=== PATIENT | female | born 1990 | race Caucasian/White ===

== ENCOUNTER → 2016-10-27 | Outpatient (CLI) | payer OTHER | LOC: COL.RAD 14:11 | DX: Z13.89 Encounter for screening for other disorder (principal) | CPT/HCPCS: Q9967 ==

== ENCOUNTER → 2021-03-17 | Outpatient (CLI) | payer OTHER | LOC: COL.RAD 12:30 | DX: M50.30 Other cervical disc degeneration, unspecified cervical region (principal); R41.3 Other amnesia; R53.83 Other fatigue | CPT/HCPCS: A9585 ==

== ENCOUNTER 2022-04-18 09:10 | Outpatient (CLI) | payer OTHER ==
[~2022-04-18] VITALS: Ht 165.1 cm; Wt 85.0 kg
--- NOTE | 2022-04-18 09:20 | NUR ---
0920 - PATIENT AMBULATORY TO R4 ACCOMPANIED BY SPOUSE. PATIENT TEARFUL. PATIENT ORIENTED TO ROOM AND CHANGES INTO GOWN. PATIENT STATES SHE HAD A FALL EALRIER TODAY ONTO HER BELLY AND IS HERE FOR AN ASSESSMENT. 924 - PLAN OF CARE REVIEWED. PATIENT PLACED ON MONITOR. VS OBTAINED. PATIENT REPORTS NO LEAKING OF FLUID AND NO CONTRACTIONS. PATIENT REPORTS GOOD MOVEMENT. QUESTIONS ANSWERED. ORAL HYDRATION PROVIDED. CARE ONGOING.
[2022-04-18] MEDS ORDERED: LEXAPRO20 MG PO (09:54)
[2022-04-18] MEDS ORDERED: PRENATAL TABLET (09:55)
[2022-04-18] MEDS ORDERED: WELLBUTRIN XL300 M1 PO (09:55)
[2022-04-18 10:00] VITALS: BP 107/57; PULSE 82; TEMP 98.2
--- NOTE | 2022-04-18 10:05 | NUR ---
1005 - MD ACACIA AT NURSES' STATION. STRIP REVIEWED BY MD. PATIENT TO BE DISCHARGED AFTER 1 HOUR OF MONITORING PER MD. 1010 - PATIENT UPDATED ON PLAN OF CARE. EFM CONTINUES. CARE ONGOING.
[2022-04-18 10:30] VITALS: BP 104/59; PULSE 72
--- NOTE | 2022-04-18 10:50 | NUR ---
1050 - PATIENT DISCHARGED HOME WITH INSTRUCTIONS. PATIENT AMBULATORY OFF UNIT ACCOMPANIED BY SPOUSE.
== END 2022-04-18 10:50 | disposition home or self-care (01) ==
LOC: LDRO 09:10
DX: Z34.92 Encounter for supervision of normal pregnancy, unspecified, second trimester (principal); Z3A.27 27 weeks gestation of pregnancy

== ENCOUNTER 2022-06-23 07:11 | Day surgery (SDC) | payer OTHER ==
[~2022-06-23] VITALS: Ht 165.1 cm; Wt 89.5 kg
[~2022-06-23 07:11] MED LIST: LEXAPRO20 MG PO; PRENATAL TABLET; WELLBUTRIN XL300 M1 PO
[2022-06-23] MEDS ORDERED: MOTRIN 200200 MG/TAB PO (07:44)
[2022-06-23] MEDS ORDERED: TUMS EXTRA STR750 MG PO (07:47)
[2022-06-23 07:59] VITALS: BP 109/50; PULSE 86; TEMP 98.1
[2022-06-23] MEDS ORDERED: NORCO 325 MG-51 TAB PO (10:18)
--- NOTE | 2022-06-23 10:45 | NUR ---
Pt seen in PACU after surgical procedure. Pt denies any contractions, leaking of fluid or vaginal bleeding and reports movement since the surgical procedure has ended. EFM and toco monitorts started. This RN remains at the bedside. One ctx per toco. See monitoring flowsheet for details on FHR tracing.
[2022-06-23 10:55] VITALS: BP 100/52; PULSE 66; TEMP 98
[2022-06-23 11:10] VITALS: BP 104/62; PULSE 66
[2022-06-23 11:25] VITALS: BP 96/55; PULSE 80
--- NOTE | 2022-06-23 11:30 | NUR ---
Received a call from surgery RN stating that pt reports feeling lower abdominal cramping and back pain. EFM and toco monitors started. This RN remains at the bedside. Irritiability noted on toco and ctx mild to moderate per palpation. FHR tracing with decel down to 100pbm for 3 minutes with slow return to baseline 120. IV fluids infusing per surgery order. trade facilitator at the bedside and increase infusion rate. Information reviewed with Dr Watson and Dr Baig for pt's transfer to OB unit for extended monitoring. See physician notification for details with Dr. Baig.
[2022-06-23 11:50] VITALS: BP 111/58; PULSE 76
--- NOTE | 2022-06-23 12:10 | NUR ---
1055 RETURNS TO ROOM 1 PER CART. AWAKE, ALERT. HOB ELEVATED 40 DEGREES. MONITORS ATTACHED. VITAL SIGNS OBTAINED. DRESSING TO RECTAL AREA. NO DRAINAGE OBERVED. PATIENT MOVES TOES ON REQUEST. DERMATOME LEVEL L1. DENIES PAIN AT THIS TIME. IN ROOM. 1110 TOLERATES PO APPLESAUCE AND JUICE WITHOUT NAUSEA 1120 PATIENT EXPRESSES PRESENCE OF LOWER ABD CRAMPING. DESCRIBES FEELING LIKE "BAD MENSTRUAL CRAMPS". REPOSITIONS ON CART. 1125 JOANNE OB NURSE NOTIFIED OF PATIENT CONDITION. 1132 JOANNE, OB RN HERE TO SEE AND MONITOR PATIENT. 1205 DR. MAYBERRY NOTIFIED VIA TELEPHONE OF OB NURSES' REQUEST TO MOVE PATIENT TO THAT DEPARTMENT FOR CONTINUED MONITORING. 1208 TRANSFERRED TO OB PER CART. 1300 PATIENT REMAINS IN OB DEPARTMENT, LYING ON LEFT SIDE. MOVES ALL EXTREMTIES. RECTAL DRESSING WITHOUT DRAINAGE. SURGICAL PROCEDURE DISCHARGE INSTRUCTIONS REVIEWED WITH PATIENT BY THIS NURSE, WITH PATIENT VERBALIZING UNDERSTANDING. COPY OF INSTRUCTIONS PROVIDED FOR PATIENT IN DISCHARGE FOLDER.
[2022-06-23 13:00] VITALS: BP 108/60; PULSE 71; TEMP 98.8
--- NOTE | 2022-06-23 13:00 | NUR ---
tobacco packing machine operator at the bedside discussing post-op care with pt and .
--- NOTE | 2022-06-23 13:40 | NUR ---
Pt reports feeling no more ctx and only concerned with her surgical pain. Pt requesting to go home.
== END 2022-06-23 14:00 | disposition home or self-care (01) ==
LOC: SDCO 07:11 → LDR 12:57 → SDCO 14:00
DX: O99.613 Diseases of the digestive system complicating pregnancy, third trimester (principal); K64.5 Perianal venous thrombosis; Z3A.36 36 weeks gestation of pregnancy; Z79.82 Long term (current) use of aspirin
CPT/HCPCS: OP; J2405; J2765; J7120

== ENCOUNTER 2022-07-01 04:13 | Inpatient (IN) | payer OTHER ==
[2022-07-01] VITALS (23 sets, daily range): BP systolic 100–134; BP diastolic 38–93; PULSE 58–80; TEMP 98.6–98.9
[~2022-07-01] VITALS: Ht 165.1 cm; Wt 89.5 kg
[~2022-07-01 04:13] MED LIST changes: +MOTRIN 200200 MG/TAB PO; +NORCO 325 MG-51 TAB PO; +TUMS EXTRA STR750 MG PO
--- NOTE | 2022-07-01 04:15 | NUR ---
G1 at 37 weeks and 4 days arrives to unit with complaint of spontaneous rupture of membranes around 0330. Pt reports small amount of meconium stained fluid out while using bathroom. Pt denies contractions and reports good movement. Pt denies headaches, blurry vision, or RUQ pain. Pt visibly very anxious. Clean gown on. Oriented to room, bed in low and locked position, call light within reach. US and toco explained and applied. Amnitrace inconclusive and patient not visibly ruptured. SVE closed with green fluid out on exam glove. Not able to feel presenting part with cervical check. Admission assessment started. Vitals obtained.
--- NOTE | 2022-07-01 05:25 | NUR ---
18G IV started in left hand with 1 attempt. Admission labs obtained off IV start. Lactated ringers infusing to gravity. Consents reviewed and signed with patient and spouse, all questions answered. Plan to proceed to surgery around 0630 with possibility of time being pushed back due to acuity on unit.
[2022-07-01 05:44] LABS: HEMOGLOBIN 10.8 g/dl (12.5-16.0); MEAN CELL VOLUME 87 fl (80.0-100.0); MEAN CORPUSCULAR HEMOGLOBIN 30 pg (27-31); MEAN CORPUSCULAR HGB CONC 34 g/dl (33.0-37.0); MEAN PLATELET VOLUME 10.2 fl (7.4-10.4); PLATELET COUNT 371 K/mm3 (130-400); REDCELL DISTRIBUTION WIDTH-CV 14.5 % (11.5-14.5)
[2022-07-01 06:09] LABS: HEMATOCRIT 31.4 % (37.0-47.0)
[2022-07-01 06:21] LABS: BAND 1 % (0-10); EOSINOPHIL 1 % (0-4); LYMPHOCYTE 13 % (20.0-51.0); NEUTROPHILS 82 % (42.0-75.2); PLATELET ESTIMATE NORMAL (NORMAL); SCHISTOCYTES 1+
--- NOTE | 2022-07-01 06:45 | NUR ---
AT BS. BEDSIDE ULTRASOUND CONFIRMS BREECH PRESENTATION. WILL PROCEED WITH NON URGENT SECTION PER .
--- NOTE | 2022-07-01 07:05 | NUR ---
0705: PT AMBULATORY TO OR FOR PRIMARY SECTION FOR BREECH PRESENTATION PER DR.PRIDDLE Obando/ ASSISTING SURGEON. PT TEARFUL AND ANXIOUS BUT APPROPRIATE. DENIES FURTHER QUESTIONS OR CONCERNS. ALL CONSENTS SIGNED. SURGICAL TIMEOUT PER PROTOCOL.
--- NOTE | 2022-07-01 08:10 | NUR ---
0810: PT TO PACU IN STABLE CONDITION FOLLOWING PRIMARY SECTION. IN NURSERY FOR OXYGEN SUPPORT, CARE OF ASSUMED BY LATRICE LAM AND JOANNE NOWAKRN. PT GROGGY BUT EASILY AROUSEABLE. LOCHIA SCANT, FUNDUS FIRM AT UMBILICUS. WILL CONTINUE WITH PACU CARES PER PROTOCOL. 0840: PT TO NURSERY VIA BED IN STABLE CONDITION TO VISIT INFANT. LOCHIA REMAINS SCANT. FUNDUS FIRM AT UMBILICUS. VITAL SIGNS STABLE. WILL ASSIST PT TO ROOM AFTER BONDING. FATHER OF BABY AT BEDSIDE AND SUPPORTIVE.
[2022-07-01] MEDS ORDERED: PERCOCET 325 MG1 TA2 PO (12:21)
[2022-07-01] MEDS ORDERED: MOTRIN 800800 MG/TAB PO (12:21)
--- NOTE | 2022-07-01 14:33 | NUR ---
REPORT TO SORIN PICHARDO AT THIS TIME
[2022-07-02 00:10] VITALS: BP 110/63; PULSE 64; TEMP 98.1
[2022-07-02 08:00] VITALS: BP 110/59; PULSE 66; TEMP 98.5
--- NOTE | 2022-07-02 10:02 | NUR ---
Initial visit; attempt; Family resting, Rooter Operator left card of congratulations and God's blessings for the of their son and information regarding the availability of [facility] at [facility].
[2022-07-02 12:00] VITALS: BP 104/57; PULSE 63; TEMP 98.4
[2022-07-02 16:45] VITALS: BP 116/49; PULSE 72; TEMP 98.3
[2022-07-02 21:30] VITALS: BP 99/60; PULSE 67; TEMP 98.5
[2022-07-03 09:15] VITALS: BP 110/62; PULSE 69; TEMP 97.9
[2022-07-03 17:13] VITALS: BP 115/64; PULSE 76; TEMP 98.1
[2022-07-03 20:00] VITALS: BP 92/55; PULSE 76; TEMP 98.6
[2022-07-04 09:30] VITALS: BP 114/55; PULSE 88; TEMP 98.3
== END 2022-07-04 11:55 | disposition home or self-care (01) | DRG 788 ==
LOC: LDRO 04:13 → OB 05:04 → LDR 05:04 → OB 10:00
PROVIDERS: ADMIT Obstetrics & Gynecology
PROC: 10D00Z1 Extraction of Products of Conception, Low, Open Approach (ICD-10-PCS; principal; 2022-07-01)
DX: O32.1XX0 Maternal care for breech presentation, not applicable or unspecified (principal); O99.344 Other mental disorders complicating childbirth; O77.0 Labor and delivery complicated by meconium in amniotic fluid; Z3A.37 37 weeks gestation of pregnancy; Z37.0 Single live birth; F41.9 Anxiety disorder, unspecified; F32.A Depression, unspecified; F43.10 Post-traumatic stress disorder, unspecified; Z86.16 Personal history of COVID-19; O99.02 Anemia complicating childbirth; D64.9 Anemia, unspecified
CPT/HCPCS: J0171; J0690; J1885; J2250; J2370; J2405; J2590; J7120